=== PATIENT | male | born 1935 | race Caucasian/White ===

== ENCOUNTER 2019-11-26 21:42 | Inpatient (IN) | payer MEDICARE, MEDICAID ==
[~2019-11-26] VITALS: Ht 160 cm; Wt 68.0 kg
[2019-11-26 21:44] VITALS: BP 115/62
[2019-11-26] MEDS ORDERED: CHILDREN'S ZYRT10 M1 PO (21:55)
[2019-11-26] MEDS ORDERED: ASA81BEC PO (21:55)
[2019-11-26] MEDS ORDERED: PLAVIX 75 MG TA75 MG PO (21:56)
[2019-11-26] MEDS ORDERED: HYDROCHLOROTHIA25 M2 PO (21:56)
[2019-11-26] MEDS ORDERED: FUROSEMIDE 20 M20 MG PO (21:56)
[2019-11-26] MEDS ORDERED: NIACIN 500 MG500 M1 PO (21:57)
[2019-11-26] MEDS ORDERED: OMEPRAZOLE 20 M20 M1 PO (21:57)
[2019-11-26] MEDS ORDERED: RAYOS5 MG PO (21:57)
[2019-11-26] MEDS ORDERED: NORVASC5 M1 PO (21:58)
[2019-11-26] MEDS ORDERED: IPRAT-ALBUT 0.5-3 ML INH (21:59)
[2019-11-26] MEDS ORDERED: MIRALAX119 GM PO (21:59)
[2019-11-26] MEDS ORDERED: DULCOLAX STOOL100 M1 PO (22:09)
[2019-11-26] MEDS ORDERED: PULMICORT0.5 MG/22 INH (22:09)
[2019-11-26] MEDS ORDERED: CARBAMAZEPINE100 M2 PO (22:09)
[2019-11-26] MEDS ORDERED: CALCIUM 600 +1 EA11 PO (22:10)
[2019-11-26] MEDS ORDERED: BROVANA15 MCG/2 M INH (22:11)
[2019-11-26] MEDS ORDERED: LIPITOR10 MG PO (22:11)
[2019-11-26] MEDS ORDERED: CLONAZEPAM 1 MG1 M1 PO (22:11)
[2019-11-26] MEDS ORDERED: MELATONIN5 MG SUBLING (22:11)
[2019-11-26] MEDS ORDERED: EPIPEN0.3 MG/0.1 IM (22:12)
[2019-11-26] MEDS ORDERED: SINGULAIR 10 MG10 MG PO (22:12)
[2019-11-26] MEDS ORDERED: FLOMAX0.4 MG PO (22:12)
[2019-11-26] MEDS ORDERED: CITRATE OF MAG296 M1 PO (22:13)
[2019-11-26] MEDS ORDERED: PROLIA60 MG/1 ML SUBQ (22:13)
[2019-11-26] MEDS ORDERED: TYLENOL325 MG PO (22:14)
[2019-11-26] MEDS ORDERED: XOLAIR75 MG/0.5 SUBQ (22:14)
[2019-11-26] MEDS ORDERED: CLONIDINE HCL0.1 M1 PO (22:15)
[2019-11-26] MEDS ORDERED: ALBUTEROL2.5 MG/31 INH (22:15)
[2019-11-26] MEDS ORDERED: PROCTOCREAM-HC30 GM RECTAL (22:16)
[2019-11-26] MEDS ORDERED: MILK OF MA400 MG/5 M PO (22:16)
[2019-11-26] MEDS ORDERED: ENEMA READY-TO133 ML RECTAL (22:16)
[2019-11-26 22:21] LABS: INFLUENZA A ANTIGEN Negative (Negative); INFLUENZA B ANTIGEN Negative (Negative)
[2019-11-26 22:28] LABS: ABSOLUTE LYMPHOCYTES 0.7 thou/uL (0.8-5.3); ABSOLUTE MONOCYTES 0.6 thou/uL (0.0-1.2); ABSOLUTE NEUTROPHILS 5.6 thou/uL (1.6-8.1); BASOPHILS 0.2 %; EOSINOPHILS 0.2 %; HEMATOCRIT 40.7 % (42.0-52.0); HEMOGLOBIN 13.9 gm/dL (14.0-18.0); LYMPHOCYTES 9.7 %; MCH 29.1 pg (26.0-34.0); MCHC 34.1 g/dL (28.0-37.0); MCV 85.4 fL (80.0-100.0); MONOCYTES 8.4 %; MPV 7.4 fl. (7.2-11.1); NUCLEATED RBCS 0 /100WBC; PLATELET COUNT* 142 thou/uL (150-400); POLYS 81.5 %; RBC 4.76 mil/uL (4.50-6.00); RDW-CV 14.6 % (10.5-14.5); WBC 6.9 thou/uL (4.0-11.0)
[2019-11-26 22:38] LABS: CALCIUM 8.9 mg/dL (8.5-10.1); CREATININE 1.9 mg/dL (0.6-1.3)
[2019-11-26 22:48] LABS: POTASSIUM 2.7 mmol/L (3.5-5.1)
[2019-11-26 22:49] LABS: ALBUMIN 3.2 g/dL (3.4-5.0); TOTAL BILIRUBIN 0.4 mg/dL (<0.1-1.0); TOTAL PROTEIN 7.8 g/dL (6.4-8.2)
[2019-11-27] VITALS (7 sets, daily range): BP systolic 107–134; BP diastolic 47–75
[2019-11-27] MEDS ORDERED: MINERIN CREME454 G1 TOP (11:51)
[2019-11-27] MEDS ORDERED: [UNRECOGNIZED DRUG - SUPPLY] TOP (11:52)
[2019-11-27 11:56] LABS: POTASSIUM 3.5 mmol/L (3.5-5.1)
--- NOTE | 2019-11-27 12:47 | NUR ---
PT ARRIVED TOUNIT VIA BED AT 1055-RECEIVIED REPORT FROM NURSE AT BEDSIDE- DX: COVID POSITIVE, HYPOXIA, HYPOKALEMIA- PT PLACED IN ENHANCED ISOLATION PRECAUTIONS INDICATED-GROUTMAN PLACED ORDERED, SR NOTED-PT ALERT TO SELF, HARD TO ASSESS R/T TANZANIAN SPEAKING AND MR- ASSESSMENT INFORMATION OBTAINED FROM LOST AND FOUND CLERK AT TIME OF ADMISSION- CONT VS INCONT OF B/B- EXPIRATORY WHEEZING NOTED- VSS, O2 SAT 98% ON 2L VIA NC- ABD SOFT/ROUND/NON-TENDER, BS X4 QUADS-PT REPORTED TO HAVE HAD BM IN ER PRIOR TO TRANSFER- K+ NOTED TO BE 2.7 IN ER, REDRAW OBTAINED AND NOTED TO BE WNL AT 3.5-IV NOTED TO RIGHT AC INTACT, IVF INFUSSING PRESCRIBED- CALL LIGHT AND PERSONAL BELONGINGS WITH IN REACH- BED ALARM IN PLACE AND WORKING FOR PT SAFETY- HOURLY ROUNDS IN PLACE R/T SAFETY/NEEDS- ALL NEEDS MET AT THIS TIME-WCTM
--- NOTE | 2019-11-27 17:47 | EKG ---
[place] [address] ELECTROCARDIOGRAM REPORT Name: ROBERT GOVEA Room: [address] IN [facility]#: [id number] Admission: 11/26/19 Attend Phys: Briana Sylvester, Discharge: Date of : 35 Date of Service: 11/26/19 2158 Report #: [id number] THIS REPORT FOR: //name// [facility] ED Test Date: 2019-11-26 Test Time: 21:58:22 Pat Name: ROBERT GOVEA Department: Patient ID: [id number]- Room: Gender: M [employer]: YANIQUE : 1935 Requested By: Matt Llamas Order Number: [id number] MD: Jamel Arciniega Measurements Intervals [place] Rate: 74 P: [place]: QRS: -17 QRSD: 99 T: 2 QT: 361 QTc: 401 Interpretive Statements Sinus rhythm Abnormal R-wave progression, early transition Inferior infarct, old No previous ECG available for comparison Electronically Signed On 11-27-2019 17:46:54 CDT by Jamel Arciniega [email or web address] <ELECTRONICALLY SIGNED> By: Jamel Arciniega MD, FACC 11/27/19 1746 2158 Jamel Arciniega MD, [facility] /EPI
[2019-11-27 19:06] LABS: CALCIUM 7.7 mg/dL (8.5-10.1); CREATININE 1.6 mg/dL (0.6-1.3)
[2019-11-28 00:37] VITALS: BP 102/57
[2019-11-28 04:48] VITALS: BP 100/60
[2019-11-28 04:52] LABS: ABSOLUTE LYMPHOCYTES 0.7 thou/uL (0.8-5.3); ABSOLUTE MONOCYTES 0.5 thou/uL (0.0-1.2); ABSOLUTE NEUTROPHILS 5.2 thou/uL (1.6-8.1); BASOPHILS 0.1 %; HEMATOCRIT 34.9 % (42.0-52.0); LYMPHOCYTES 11.1 %; MCH 29.4 pg (26.0-34.0); MCHC 34.2 g/dL (28.0-37.0); MONOCYTES 8.4 %; MPV 7.8 fl. (7.2-11.1); NUCLEATED RBCS 0 /100WBC; PLATELET COUNT* 119 thou/uL (150-400); POLYS 80.4 %; RBC 4.06 mil/uL (4.50-6.00); RDW-CV 14.7 % (10.5-14.5); WBC 6.5 thou/uL (4.0-11.0)
[2019-11-28 05:06] LABS: HEMOGLOBIN 11.9 gm/dL (14.0-18.0)
[2019-11-28 05:09] LABS: ALBUMIN 2.4 g/dL (3.4-5.0); CALCIUM 7.4 mg/dL (8.5-10.1); CREATININE 1.7 mg/dL (0.6-1.3); POTASSIUM 3.4 mmol/L (3.5-5.1); TOTAL BILIRUBIN 0.3 mg/dL (<0.1-1.0); TOTAL PROTEIN 5.9 g/dL (6.4-8.2)
--- NOTE | 2019-11-28 06:56 | NUR ---
ASSUMED CARE OF PT AFTER REPORT AT 1930. PT A&0X1-2. VSS. PHYSICAL ASSESSMENT COMPLETED AND CHARTED. PT ON O2 AT 2L NC. PT TRACING SR/SB ON TELE. PT WITH EPISODES OF INCONTINENT BOWEL & BLADDER. PT TURNED TO SIDES. FALL PRECAUTIONS IN PLACE. MAINTAINED ON ENHANCED ISOLATION.
[2019-11-28 07:38] VITALS: BP 103/52
--- NOTE | 2019-11-28 08:49 | NUR ---
ASSUMED CARE OF PT THIS AM AROUND 0715- CREMATORY OPERATOR IN PLACE ORDERED, TRACING SB WITH 1ST DEGREE- UPON ASSESSMENT PT NOTED TO BE RESTING IN BED- PT A&O X1-2, VERBAL BUT UNABLE TO TO UNDERSTAND R/T MR AND PANAMANIAN SPEAKING- INCONT OF BOWEL AND BLADDER- BED REST IN PLACE WITH Q2 HOUR TURNS- WHEEZES WITH COURSENESS NOTED- CONGESTED COUGH- VSS, O2 SAT 94% ON 2L VIA NC- ABD SOFT/OBESE/NON-TENDER, BS X4 QUADS- BM NOTED THIS AM- SET UP ASSIST WITH MEALS REQUIRED R/T BLINDNESS- BS MONITORED ORDERED- IV NOTED TO RIGHT AC INTACT, IVF INFUSSING PRESCRIBED- IV ABT GIVEN THIS AM PRESCRIBED- CALL LIGHT AND PERSONAL BELONGINGS WITH IN REACH- BED ALARM IN PLACE AND WORKING FOR PT SAFETY/NEEDS- HOURLY ROUNDS IN PLACE R/T SAFETY/NEEDS- ALL NEEDS MET AT THIS TIME-WCTM
[2019-11-28 12:00] VITALS: BP 115/60
--- NOTE | 2019-11-28 12:19 | CON ---
[address] [address] CONSULTATION Name: ROBERT GOVEA Room: [address] IN .R.#: [id number] Admission: 11/26/19 Attend Phys: Briana Sylvester MD Discharge: Date of : 35 Report #: [id number] THIS REPORT FOR: //name// cc: Physician not on staff Physician not on staff ~ THIS REPORT FOR: //name// DATE OF SERVICE: 11/27/2019 Consult has been requested by Dr. Cavazos. INDICATION FOR CONSULTATION: COVID-19. HISTORY OF PRESENT ILLNESS: This is an 84-year-old gentleman. He lives at a nursing home and has a history of mental retardation and visual impairment. The patient is reported to be admitted to this time here with hypoxia and lethargy. He is also in renal failure. His creatinine is 1.9 on admission. I do not have a previous creatinine available. The patient currently is maintaining O2 saturation in the mid 90s on 2 liters nasal cannula. He does not appear to be in any respiratory distress at this time. The patient is drowsy, he is fully arousable; however, he is not able to provide any meaningful history. The patient is also not able to provide a review of systems PAST MEDICAL HISTORY: Mental retardation, visual and hearing impairment, schizophrenia, hyperlipidemia, has had fluid around his lungs, details not available, pneumonia, hypertension, epilepsy, pigmentary retinal dystrophy, enlarged prostate, and osteoporosis. Bronchial asthma, according to the home medications, the patient is on therapy for bronchial asthma including on Xolair. SOCIAL HISTORY: There is no known history of smoking, ethanol abuse or drug abuse. Resident of a nursing home as above. CURRENT MEDICATIONS: List in [facility] reviewed. HOME MEDICATIONS: List also in [facility] reviewed. ALLERGIES: ATROPINE. FAMILY HISTORY: There is no known pertinent family history. PHYSICAL EXAMINATION: GENERAL: He is drowsy, he is fully arousable. He; however, does not provide any meaningful history. VITAL SIGNS: Has a pulse of 86 and a blood pressure of 132/75. He is saturating in the mid 90s. He is on 2 liters nasal cannula. His respiratory rate is 16. He is afebrile with a temperature [place] 36.7. [place] [address] CONSULTATION Name: ROBERT GOVEA Room: [address]#: [id number] Admission: 11/26/19 Attend Phys: Briana Sylvester MD Discharge: Date of : 35 Report #: [id number] HEENT: Head is normocephalic. There is obvious abnormalities of his eyes. NECK: Does not show raised JVP. CHEST: Clear to auscultation. HEART: Regular, no murmur. ABDOMEN: Soft and nontender. EXTREMITIES: Lower extremities show no edema and no calf tenderness. SKIN: Dry and intact. NEUROLOGICAL: He did move all extremities. Detailed neurological examination is not possible. At the time of my examination, the patient had his dinner in front of him and he was lying down. The patient did not appear to be aware that there is food in front of him. He was not eating. LABORATORY DATA: The patient's lab work is in [email or web address] reviewed. The patient's chest x-ray also in [facility] reviewed. ASSESSMENT AND PLAN: 1. Acute respiratory insufficiency. The patient does appear to have bronchial asthma in the background, has developed COVID-19 now, the possibility of aspiration is not ruled out. He does have infiltrates. 2. COVID-19, agree with remdesivir as well as Decadron as currently ordered. 3. Acute renal failure, creatinine has improved to 1.6 with hydration. He remains on saline, watch fluid status closely. I do not have his previous baseline creatinine available. It is not known to me as to whether there is a component of chronic renal failure as well or not. 4. Pulmonary infiltrates. I agree with Levaquin. 5. Bronchial asthma. This is not mentioned on the records previously. However, the patient does appear to be on aggressive therapy for asthma including Xolair and daily prednisone is also reported. I am not aware of any other indication for prednisone. Considering this history in addition to Decadron as above, the patient would benefit from nebulized bronchodilators. The patient currently is not in a negative pressure room if it is feasible to have the patient in a negative pressure room or have a scrubber in the room, so that he can use nebulized bronchodilators then this may be helpful. I do not feel that he can use a metered dose inhaler correctly. Therefore, for now, I did go ahead and order oral albuterol. 6. Deep vein thrombosis prophylaxis, he is on Lovenox. Thanks for this consultation. <ELECTRONICALLY SIGNED> By: Christopher Hair MD 11/28/19 1219 [id number] Hair MD /nt
[2019-11-28 16:00] VITALS: BP 128/76
[2019-11-28 20:00] VITALS: BP 132/59
[2019-11-29] VITALS: BP 103/58
[2019-11-29 04:00] VITALS: BP 141/69
[2019-11-29 05:45] LABS: HEMATOCRIT 35.2 % (42.0-52.0); HEMOGLOBIN 12.1 gm/dL (14.0-18.0); MCH 29.6 pg (26.0-34.0); MCHC 34.3 g/dL (28.0-37.0); MCV 86.3 fL (80.0-100.0); NUCLEATED RBCS 0 /100WBC; PLATELET COUNT* 126 thou/uL (150-400); RBC 4.09 mil/uL (4.50-6.00); RDW-CV 14.6 % (10.5-14.5); WBC 6.2 thou/uL (4.0-11.0)
[2019-11-29 06:03] LABS: ALBUMIN 2.4 g/dL (3.4-5.0); CALCIUM 7.2 mg/dL (8.5-10.1); CREATININE 1.5 mg/dL (0.6-1.3); TOTAL BILIRUBIN 0.3 mg/dL (<0.1-1.0); TOTAL PROTEIN 6.2 g/dL (6.4-8.2)
[2019-11-29 06:24] LABS: PREALBUMIN 12.9 mg/dL (18.0-35.7)
[2019-11-29 06:36] LABS: ABSOLUTE LYMPHOCYTES 0.7 thou/uL (0.8-5.3); ABSOLUTE MONOCYTES 0.1 thou/uL (0.0-1.2); ABSOLUTE NEUTROPHILS 5.5 thou/uL (1.6-8.1); PLATELET ESTIMATE DECREASED
[2019-11-29 06:37] LABS: HYPOCHROMASIA Occasional
--- NOTE | 2019-11-29 07:39 | NUR ---
ASSUMED CARE OF PT AFTER REPORT AT 1930. PT A&OX1-2. VSS. PHYSICAL ASSESSMENT COMPLETED AND CHARTED. PT ON O2 AT 2L NC. PT TRACING S
--- NOTE | 2019-11-29 07:45 | NUR ---
ASSUMED CARE OF PT AFTER REPORT AT 1930. PT A&OX1-2. VSS. PHYSICAL ASSESSMENT COMPLETED AND CHARTED. PT ON O2 AT 2L NC. PT TRACING SR/SB ON TELE. PT WITH EPISODES OF INCONTINENT BOWEL AND BLADDER. PT DENIES ANY PAIN. PT TURNED TO SIDES. CALL LIGHT WITHIN REACH. FALL PRECAUTIONS IN PLACE.
[2019-11-29 08:03] VITALS: BP 136/68
--- NOTE | 2019-11-29 09:17 | NUR ---
ASSUMED CARE OF PT THIS AM AROUND 07- BUSHEL WORKER IN PLACE ORDERED, TRACING SR/1ST DEGREE- UPON ASSESSMENT PT NOTED TO BE RESTING IN BED- PT A&O X1-2- COMMUNICATION LIMMITED R/T MR AND ECUADOREAN SPEAKING- ASSIST X1 WITH TRANSFERS- Q [address] INDICATED- INCONT OF B/B- WHEEZE/COURSE LUNG SOUNDS NOTED WITH INCREASED DYSPNEA, IVF DISCONNECTED AND PHYSICAIN TO BE NOTIFIED- ABD SOFT/ROUND/NON-TENDER, BS X4 QUADS- BM REPORTED ON PRIOR SHIFT- IV NOTED TO LEFT AC INTACT, IV ABT INFUSSING THIS AM PRESCRIBED- SET UP ASSISTANCE REQUIRED WITH MEALS R/T BLINDNESS, FAIR PO INTAKE NOTED THIS AM WITH BREAKFAST, BS MONITORED ORDERED- CALL LIGHT AND PERSONAL BELONGINGS WITH IN REACH- BED ALARM IN PLACE AND WORKING FOR PT SAFETY/NEEDS- ALL NEEDS MET AT THIS TIME-WCTM
[2019-11-29 14:20] VITALS: BP 133/74
--- NOTE | 2019-11-29 17:37 | NUR ---
CM INFORMED THAT THE PT RESIDES IN A SNF. CM SPOKE TO NING DEMARCO AT THE SNF AND SHE INFORMS THAT THE PT IS NORMALLY ALERT TO SELF. PT IS BLIND BU T ABLE TO FEED HIMSELF WITH QUES. PT REQUIRES ASSIST WITH BATHING AND DRESSING. PT USES HOME O2 AND NEBULIZER. PT'S LEGAN GUARDIAN AND SNF WILL NEED TO BE CONTACTED PRIOR TO D/C. SNF RN WILL ARRANGE TRANSPORT FOR THE PT. CM WILL REMAIN AVAILABLE TO ASSIST AND FOLLOW NEEDED. NING DEMARCO AT SNF PHONE: [phone] YESIKA, LEGAL GUARDIAN: [phone]
[2019-11-29 18:11] LABS: APTT 33.8 Seconds (25.0-31.3); PROTIME 10.2 Seconds (9.20-11.50)
[2019-11-29 18:12] LABS: CALCIUM 7.4 mg/dL (8.5-10.1); CREATININE 1.6 mg/dL (0.6-1.3)
[2019-11-29 18:53] LABS: URINE BILIRUBIN NEGATIVE (Negative); URINE BLOOD TRACE (Negative); URINE CLARITY CLEAR; URINE COLOR YELLOW; URINE GLUCOSE-RANDOM NEGATIVE (Negative); URINE KETONES NEGATIVE (Negative); URINE LEUKOCYTES-REFLEX NEGATIVE (Negative); URINE NITRITE-REFLEX NEGATIVE (Negative); URINE PROTEIN NEGATIVE (Negative); URINE SPECIFIC GRAVITY 1.015 (1.005-1.030); URINE UROBILINOGEN 0.2 E.U./dl (0.2-1.0)
[2019-11-29 19:50] VITALS: BP 132/78
[2019-11-30 00:53] VITALS: BP 124/79
[2019-11-30 04:42] VITALS: BP 134/74
[2019-11-30 04:57] LABS: ABSOLUTE LYMPHOCYTES 0.4 thou/uL (0.8-5.3); ABSOLUTE MONOCYTES 0.4 thou/uL (0.0-1.2); ABSOLUTE NEUTROPHILS 5.2 thou/uL (1.6-8.1); BASOPHILS 0.1 %; HEMATOCRIT 37.8 % (42.0-52.0); LYMPHOCYTES 6.4 %; MCH 29.1 pg (26.0-34.0); MCHC 34.4 g/dL (28.0-37.0); MCV 84.7 fL (80.0-100.0); MONOCYTES 6.3 %; MPV 7.9 fl. (7.2-11.1); NUCLEATED RBCS 0 /100WBC; PLATELET COUNT* 149 thou/uL (150-400); POLYS 87.2 %; RBC 4.47 mil/uL (4.50-6.00); RDW-CV 14.7 % (10.5-14.5); WBC 5.9 thou/uL (4.0-11.0)
[2019-11-30 05:12] LABS: PREALBUMIN 14.8 mg/dL (18.0-35.7)
[2019-11-30 05:21] LABS: ALBUMIN 2.7 g/dL (3.4-5.0); CALCIUM 7.6 mg/dL (8.5-10.1); CREATININE 1.7 mg/dL (0.6-1.3); POTASSIUM 3.5 mmol/L (3.5-5.1); TOTAL BILIRUBIN 0.4 mg/dL (<0.1-1.0); TOTAL PROTEIN 6.8 g/dL (6.4-8.2)
[2019-11-30 08:00] VITALS: BP 169/89
--- NOTE | 2019-11-30 08:19 | NUR ---
PT CARE ASSUMED AT 1930. SAT MAINTAINED IN RA. PT IS ALERT. UNALBE TO DO MRSA SWAB PT REFUSED, COVERED HIS NOSE WITH THE HANDS AND WOULDN'T LET THIS NURSE SWAB THE NOSE, EDUCATION GIVEN NEEDS REINFORCEMENT. CALL LIGHT WITHIN REACH AND BED IN LOW POSITION. HOURY ROUNDING DONE FOR PT SAFETY.
[2019-11-30 14:01] VITALS: BP 138/68
[2019-11-30 17:02] VITALS: BP 141/75
--- NOTE | 2019-11-30 18:08 | NUR ---
PT IS RESTING AT THIS TIME.NO OUTWARD SIGNS OF DISCOMFORT. VSS ON RA. BREATHING TX BID,AIR SCRUBBER IN ROOM. PT HAS NO REQUESTS.EMTM
[2019-12-01] VITALS: BP 121/73
[2019-12-01 04:00] VITALS: BP 120/76
[2019-12-01 04:54] LABS: ABSOLUTE LYMPHOCYTES 0.5 thou/uL (0.8-5.3); ABSOLUTE MONOCYTES 0.5 thou/uL (0.0-1.2); HEMATOCRIT 39.2 % (42.0-52.0); HEMOGLOBIN 13.2 gm/dL (14.0-18.0); LYMPHOCYTES 6.9 %; MCH 28.8 pg (26.0-34.0); MCHC 33.7 g/dL (28.0-37.0); MCV 85.5 fL (80.0-100.0); MONOCYTES 6.7 %; MPV 7.8 fl. (7.2-11.1); NUCLEATED RBCS 0 /100WBC; PLATELET COUNT* 183 thou/uL (150-400); POLYS 86.4 %; RBC 4.58 mil/uL (4.50-6.00); RDW-CV 14.3 % (10.5-14.5); WBC 6.9 thou/uL (4.0-11.0)
[2019-12-01 05:45] LABS: ALBUMIN 2.8 g/dL (3.4-5.0); CALCIUM 7.8 mg/dL (8.5-10.1); CREATININE 1.4 mg/dL (0.6-1.3); POTASSIUM 3.9 mmol/L (3.5-5.1); TOTAL BILIRUBIN 0.5 mg/dL (<0.1-1.0); TOTAL PROTEIN 6.9 g/dL (6.4-8.2)
[2019-12-01 08:00] VITALS: BP 134/67
[2019-12-01 12:09] VITALS: BP 149/71
[2019-12-01 17:24] VITALS: BP 127/64
--- NOTE | 2019-12-01 18:57 | NUR ---
PT IS RESTING.NO OUTWARDS SIGNS OF DISCOMFORT. VSS ON RA. ST BBB.SCRUBBER IN ROOM. WCTM
[2019-12-01 20:00] VITALS: BP 117/61
[2019-12-02] VITALS: BP 139/62
[2019-12-02 04:00] VITALS: BP 151/78
[2019-12-02 04:59] LABS: HEMATOCRIT 39.6 % (42.0-52.0); HEMOGLOBIN 13.2 gm/dL (14.0-18.0); MCH 28.7 pg (26.0-34.0); MCHC 33.2 g/dL (28.0-37.0); MCV 86.4 fL (80.0-100.0); MPV 7.8 fl. (7.2-11.1); NUCLEATED RBCS 0 /100WBC; PLATELET COUNT* 192 thou/uL (150-400); RBC 4.59 mil/uL (4.50-6.00); RDW-CV 14.4 % (10.5-14.5); WBC 8.2 thou/uL (4.0-11.0)
[2019-12-02 05:10] LABS: ALBUMIN 2.6 g/dL (3.4-5.0); CREATININE 1.5 mg/dL (0.6-1.3); POTASSIUM 3.6 mmol/L (3.5-5.1); TOTAL BILIRUBIN 0.6 mg/dL (<0.1-1.0); TOTAL PROTEIN 6.5 g/dL (6.4-8.2)
[2019-12-02 07:14] LABS: ABSOLUTE LYMPHOCYTES 0.8 thou/uL (0.8-5.3); ABSOLUTE MONOCYTES 0.2 thou/uL (0.0-1.2); ABSOLUTE NEUTROPHILS 7.1 thou/uL (1.6-8.1); PLATELET ESTIMATE ADEQUATE
[2019-12-02 07:15] LABS: HYPOCHROMASIA Occasional
--- NOTE | 2019-12-02 07:30 | NUR ---
ASSUMED PT CARE AT APPROX 1930. PT IS AWAKE, ORIENTED TO SELF. CONFUSED MOST OF THE TIME. PT IS TRACING SR ON THE DRY WALL FINISHER. spO2: 89% ON ROOM AIR, PT IS PROVIDED WITH 2L OF O2/NC, spo2:92-94% ON 2L OF O2/NC. HEAD OF BED ELEVATED TO 30 DEG, STRICT ASPIRATION PRECAUTIONS MAINTAINED. PRN BREATHING TX ORDERED PER DR PLUMMER.PT REMAINED INCONTINENT OF BOTH BOWEL AND BLADDER PT IS REPOSITIONED Q2H AND IS KEPT CLEAN AND DRY NEEDED. PT IS MONITORED CLOSELY. HIGH FALL PRECAUTIONS IN PLACE.
[2019-12-02] MEDS ORDERED: DOXYCYCLINE 10100 MG PO (10:57)
[2019-12-02] MEDS ORDERED: AUGMENTIN 875-1 EACH PO (10:57)
[2019-12-02] MEDS ORDERED: FLORASTOR250 MG PO (10:57)
[2019-12-02] MEDS ORDERED: NEXIUM40 MG PO (10:57)
[2019-12-02] MEDS ORDERED: DEXAMETHASONE1 MG PO (11:00)
[2019-12-02 11:58] VITALS: BP 152/62
--- NOTE | 2019-12-02 13:51 | NUR ---
CM INFORMED DURING PRIME ROUNDING THAT THE PT MAY BE READY TO D/C. HOWEVER PER PULM PT WILL NEED TO REMAIN IN THE HOSPITAL FOR ONE MORE NIGHT AND POSSIBLY D/C TOMORROW. PLAN TO WEAN PT OFF O2 HE DID NOT HAVE O2 PRIOR TO ADMIT. PT MAY ALSO NEED A SWALLOW STUDY. RN IN-CHARGE OF THE PT SPOKE TO NING SANTACRUZ WITH THE [facility] THAT THE PT RESIDES IN AND PROVIDED AN UPDATE ON THE PT. PRIOR TO PT'S D/C CM WILL CONTACT PT'S GUARDIAN AND NING SANTACRUZ AT THE [facility] THEY WILL PROVIDE TRANSPORT BACK TO THE [facility]. CM WILL REMAIN AVAILABLE TO ASSIST AND FOLLOW NEEDED.
--- NOTE | 2019-12-02 13:59 | NUR ---
CM INFORMED DURING PRIME ROUNDING OF PLAN OF CARE FOR THE PT INCLUDING PENDING PULMONARY AND GI COMNSULTS. PT MAY ALSO NEED HH AT D/C. CM WILL REMAIN AVAILABLE TO ASSIST AND FOLLOW NEEDED.
[2019-12-02 15:55] VITALS: BP 147/84
--- NOTE | 2019-12-02 18:43 | NUR ---
PT RESTING IN BED THROUGHOUT SHIFT. INCONTINENT,PERICARE AND BED CHANGED FREQUENTLY. PT APPEARS TO BE TALKING TO SOMEONE BUT NO ONE IS IN ROOM. PT PRIMARILY CZECH SPEAKING BUT ABLE TO COMMUNICATE MINIMALLY IN LITHUANIAN. PT ASSISTED WITH MEALS. PT REMAINS IN ENHANCED PRECAUTIONS FOR COVID. 02@2L NC.
[2019-12-02 21:00] VITALS: BP 142/91
[2019-12-02 23:45] VITALS: BP 111/65
[2019-12-03 04:00] VITALS: BP 156/79; BP 99/66
[2019-12-03 05:39] LABS: ALBUMIN 2.7 g/dL (3.4-5.0); CALCIUM 8.2 mg/dL (8.5-10.1); CREATININE 1.4 mg/dL (0.6-1.3); POTASSIUM 3.4 mmol/L (3.5-5.1); TOTAL BILIRUBIN 0.7 mg/dL (<0.1-1.0)
[2019-12-03 08:00] VITALS: BP 157/84
--- NOTE | 2019-12-03 09:17 | NUR ---
RECIEVED REPORT AROUND 0715. ASSUMED CARE. PT LYING IN BED. COVID POSITIVE. ISOLATION PRECAUTIONS INTACT. VS AND ASSESSMENT CHARTED. IV INTACT LEFT AC. SALINE LOCK. HEART MONITOR ATTACHED. PT HISTORY OF SCHIZOPHRENIA. BILATERALLY BLIND. TALKING IN DANISH. UNDERSTANDS AND SPEAKS SOME IRANIAN. PT NOT ENGAGING CONVERSATION WITH STAFF. CONVERSATES WITH SELF. MEDS GIVEN PER MAR THIS AM. DISCHARGE ORDERS RECIEVED. CALL LIGHT WITHIN REACH. WILL CONTINUE TO MONITOR.
[2019-12-03 11:10] VITALS: BP 157/84
--- NOTE | 2019-12-03 13:01 | NUR ---
Pt discharging back to [facility] today, facility to transport at 3pm. DC orders included in dc packet. CM spoke with NING Wilson, regarding dc. CM provided nurse with report number. No o2 needs.
[2019-12-03 13:08] VITALS: BP 158/93
--- NOTE | 2019-12-03 14:51 | NUR ---
RECIEVED DISCHARGE ORDERS. PACKET GIVEN TO FACILITY. REPORT CALLED TO NOAM. COMMUNICATED UNDERSTANDING. IV TAKEN OUT. HEART MONITOR OFF. ISOLATION PRECAUTIONS REMAIN INTACT. PT LEFT UNIT AT 1442 VIA WHEEL CHAIR WITH NURSING STAFF WITH ALL BELONGINGS.
== END 2019-12-03 14:45 | disposition home or self-care (01) | DRG 871 ==
LOC: M.ERS 21:42 → M.TBA-ER 22:56 → M.2W 11-27 10:59
PROVIDERS: Emergency Medicine Emergency Medical Services; Internal Medicine; Internal Medicine Critical Care Medicine; ADMIT Internal Medicine; ATTEND Internal Medicine
PROC: XW033E5 Introduction of Remdesivir Anti-infective into Peripheral Vein, Percutaneous Approach, New Technology Group 5 (ICD-10-PCS; principal; 2019-11-27)
PROC: XW033E5 Introduction of Remdesivir Anti-infective into Peripheral Vein, Percutaneous Approach, New Technology Group 5 (ICD-10-PCS; 2019-11-28)
PROC: XW033E5 Introduction of Remdesivir Anti-infective into Peripheral Vein, Percutaneous Approach, New Technology Group 5 (ICD-10-PCS; 2019-11-29)
PROC: XW033E5 Introduction of Remdesivir Anti-infective into Peripheral Vein, Percutaneous Approach, New Technology Group 5 (ICD-10-PCS; 2019-11-30)
PROC: XW033E5 Introduction of Remdesivir Anti-infective into Peripheral Vein, Percutaneous Approach, New Technology Group 5 (ICD-10-PCS; 2019-12-01)
DX: A41.89 Other specified sepsis (principal); U07.1 COVID-19; J12.89 Other viral pneumonia; J96.01 Acute respiratory failure with hypoxia; N17.9 Acute kidney failure, unspecified; G93.40 Encephalopathy, unspecified; F20.9 Schizophrenia, unspecified; E87.6 Hypokalemia; F79 Unspecified intellectual disabilities; E78.5 Hyperlipidemia, unspecified; M81.0 Age-related osteoporosis without current pathological fracture; J45.909 Unspecified asthma, uncomplicated; Z88.8 Allergy status to other drugs, medicaments and biological substances; Z79.82 Long term (current) use of aspirin; Z79.899 Other long term (current) drug therapy; Z23 Encounter for immunization